=== PATIENT | female | born 1970 | race Caucasian/White ===

== ENCOUNTER → 2024-08-02 15:14 | Outpatient (REF) | payer BC, SELFPAY | LOC: WDC 15:14 | PROVIDERS: ATTENDING PHYSICIAN Family Medicine | DX: Z12.31 Encounter for screening mammogram for malignant neoplasm of breast (principal) | CPT/HCPCS: 77063; 77067 ==

== ENCOUNTER → 2024-08-23 10:35 | Outpatient (REF) | payer BC, SELFPAY | LOC: WDC 10:35 | PROVIDERS: ATTENDING PHYSICIAN Family Medicine | DX: R92.8 Other abnormal and inconclusive findings on diagnostic imaging of breast (principal) | CPT/HCPCS: 76642 ==

== ENCOUNTER → 2024-08-31 11:41 | Outpatient (REF) | payer BC, SELFPAY | LOC: RAD 11:41 | PROVIDERS: ATTENDING PHYSICIAN Family Medicine | DX: Z87.891 Personal history of nicotine dependence (principal); F17.210 Nicotine dependence, cigarettes, uncomplicated | CPT/HCPCS: 71271 ==

== ENCOUNTER 2025-08-22 06:20 | Day surgery (SDC) | payer BC, SELFPAY | END 2025-08-22 11:21 | disposition home or self-care (01) | LOC: GI 06:20 | PROVIDERS: ATTENDING PHYSICIAN Internal Medicine Gastroenterology | DX: K62.5 Hemorrhage of anus and rectum (principal); R19.4 Change in bowel habit; K52.9 Noninfective gastroenteritis and colitis, unspecified; K64.9 Unspecified hemorrhoids; R12 Heartburn; K44.9 Diaphragmatic hernia without obstruction or gangrene; K22.2 Esophageal obstruction; K31.7 Polyp of stomach and duodenum; D12.5 Benign neoplasm of sigmoid colon; K63.5 Polyp of colon | CPT/HCPCS: 45385; 45381; 45380; 43239; 88305; 88342 ==

== ENCOUNTER → 2025-09-20 15:41 | Outpatient (REF) | payer BC, SELFPAY | LOC: WDC 15:41 | PROVIDERS: ATTENDING PHYSICIAN Internal Medicine | DX: Z12.31 Encounter for screening mammogram for malignant neoplasm of breast (principal) | CPT/HCPCS: 77063; 77067 ==

== ENCOUNTER → 2025-10-20 14:28 | Outpatient (REF) | payer BC, SELFPAY | LOC: RAD 14:28 | PROVIDERS: ATTENDING PHYSICIAN Internal Medicine Gastroenterology; OTHER PHYSICIAN Physician Assistant | DX: Z18.9 Retained foreign body fragments, unspecified material (principal) | CPT/HCPCS: 74018 ==